=== PATIENT | female | born 1965 | race Two or more races ===

== ENCOUNTER 2016-09-17 21:11 | Emergency (ER) | payer OTHER ==
[~2016-09-17] VITALS: Ht 152.4 cm; Wt 71.1 kg
[2016-09-17] MEDS ORDERED: SKELAXIN800 MG PO (22:42)
[2016-09-17] MEDS ORDERED: NORCO 5/3251 TABLET PO (22:42)
[2016-09-17 22:59] VITALS: BP 155/79
== END 2016-09-17 23:18 | disposition home or self-care (01) ==
LOC: EME 21:11
DX: S16.1XXA Strain of muscle, fascia and tendon at neck level, initial encounter (principal); S39.012A Strain of muscle, fascia and tendon of lower back, initial encounter; V43.62XA Car passenger injured in collision with other type car in traffic accident, initial encounter; Y92.410 Unspecified street and highway as the place of occurrence of the external cause; E11.9 Type 2 diabetes mellitus without complications; E78.5 Hyperlipidemia, unspecified
CPT/HCPCS: 99281; 99284